=== PATIENT | male | born 1975 | race Caucasian/White ===

== ENCOUNTER 2025-03-04 14:59 | Emergency (ER) | payer MEDICAID, OTHER ==
[~2025-03-04] VITALS: Ht 167.6 cm; Wt 61.0 kg
[~2025-03-04 14:59] MED LIST: NALO4SPR BOTHNSTRLS; OXYC-100 MT; PANT40TA51 PO; SIME80TA16 PO; SUCR1TAB PO; TAMS-54 PO
[2025-03-04 15:04] VITALS: O2SAT 100
[2025-03-04 16:18] LABS: BASOPHILS % 0.9 % (0.0-2.0); EOSINOPHILS % 6.2 % (0.0-5.0); HEMATOCRIT. 31.4 % (42.0-52.0); HEMOGLOBIN. 9.9 g/dL (14.0-18.0); LYMPHOCYTES % 24.5 % (20.0-50.0); MEAN PLATELET VOLUME 7.3 fl (7.4-10.4); MONOCYTES % 6.7 % (2.0-8.0); NEUTROPHILS % 61.7 % (40.0-76.0); PLATELET 498 x1000/uL (130-400); RED BLOOD CELL COUNT 3.53 mill/uL (4.7-6.1); RED CELL DISTRIBUTION WIDTH 15.9 % (11.6-14.6)
[2025-03-04 16:32] LABS: CREATININE 0.8 mg/dL (0.6-1.3); UREA NITROGEN BLOOD 11 mg/dL (9-23)
[2025-03-04 16:33] LABS: PROTEIN TOTAL 7.3 g/dL (6.0-8.3)
[2025-03-04 16:34] LABS: ASPARTATE AMINOTRANSFERASE 17 IU/L (<34); TROPONIN I HIGH SENSITIVITY 5 ng/L (3.0-53)
[2025-03-04 16:35] LABS: BILIRUBIN DIRECT 0.1 mg/dL (<=3.0); BILIRUBIN TOTAL 0.6 mg/dL (0.1-1.0)
[2025-03-04 17:25] LABS: CLARITY URINE CLEAR (CLEAR); COLOR URINE YELLOW (YELLOW); GLUCOSE URINE NEGATIVE (NEGATIVE); KETONES URINE NEGATIVE (NEGATIVE); LEUKOCYTE ESTERASE URINE NEGATIVE (NEGATIVE); NITRITE URINE NEGATIVE (NEGATIVE); OCCULT BLOOD URINE NEGATIVE (NEGATIVE); PH URINE 7.0 (4.5-8.0); PROTEIN URINE NEGATIVE (NEGATIVE); SPECIFIC GRAVITY URINE 1.007 (1.005-1.030); UROBILINOGEN URINE 0.2 E.U./dL (0.2-1.0)
[2025-03-04] MEDS: OXYCODONE HCL/ACETAMINOPHEN 5/325MG TABLET PO ONE (18:02)
[2025-03-04 19:12] VITALS: TEMP 36.8
[2025-03-04 20:20] VITALS: BP 134/82; PULSE 84; RESP 13; O2SAT 100
[2025-03-04] MEDS ORDERED: OXYC-100 MT (21:27)
== END 2025-03-04 20:21 | disposition home or self-care (01) ==
LOC: ER 14:59 → EDBEDREQ 15:34 → CANBEDREQ 19:36 → ER 20:21
DX: K57.30 Diverticulosis of large intestine without perforation or abscess without bleeding (principal); Z93.3 Colostomy status; Z79.899 Other long term (current) drug therapy; Z88.5 Allergy status to narcotic agent; Z88.6 Allergy status to analgesic agent
CPT/HCPCS: 36415; 74176; 80048; 80076; 81003; 84484; 85025; 99285

== ENCOUNTER 2025-03-04 20:38 | Emergency (ER) | payer OTHER ==
[~2025-03-04] VITALS: Ht 167.6 cm; Wt 63.8 kg
[2025-03-04 20:48] VITALS: BP 137/76; TEMP 36.4; O2SAT 100
[2025-03-04 20:49] VITALS: PULSE 86; RESP 16; O2SAT 98
[2025-03-04] MEDS ORDERED: OXYC-100 MT (21:27)
== END 2025-03-04 21:52 | disposition home or self-care (01) ==
LOC: ER 20:38
DX: R10.84 Generalized abdominal pain (principal); R50.9 Fever, unspecified; Z79.899 Other long term (current) drug therapy; Z93.3 Colostomy status; Z88.6 Allergy status to analgesic agent; Z88.5 Allergy status to narcotic agent
CPT/HCPCS: 99283

== ENCOUNTER 2025-03-13 12:59 | Emergency (ER) | payer OTHER ==
[~2025-03-13] VITALS: Ht 172.7 cm; Wt 61.0 kg
[2025-03-13 13:04] VITALS: O2SAT 99
[2025-03-13 13:50] LABS: BASOPHILS % 0.8 % (0.0-2.0); EOSINOPHILS % 7.9 % (0.0-5.0); HEMATOCRIT. 32.0 % (42.0-52.0); HEMOGLOBIN. 10.0 g/dL (14.0-18.0); LYMPHOCYTES % 29.0 % (20.0-50.0); MEAN PLATELET VOLUME 7.2 fl (7.4-10.4); MONOCYTES % 7.0 % (2.0-8.0); NEUTROPHILS % 55.3 % (40.0-76.0); PLATELET 402 x1000/uL (130-400); RED BLOOD CELL COUNT 3.77 mill/uL (4.7-6.1); RED CELL DISTRIBUTION WIDTH 16.8 % (11.6-14.6)
[2025-03-13] MEDS: METOCLOPRAMIDE HCL 10MG/2ML VIAL IV ONE (13:58)
[2025-03-13] MEDS: MORPHINE SULFATE 4 MG/ML INJ (FOR IV/IM USE) IV ONE (13:58)
[2025-03-13] MEDS: SODIUM CHLORIDE 0.9% 1,000 ML IV ONE (13:58)
[2025-03-13 14:09] LABS: CREATININE 0.8 mg/dL (0.6-1.3)
[2025-03-13 14:10] LABS: PROTEIN TOTAL 6.7 g/dL (6.0-8.3); UREA NITROGEN BLOOD 10 mg/dL (9-23)
[2025-03-13 14:11] LABS: ASPARTATE AMINOTRANSFERASE 14 IU/L (<34)
[2025-03-13 14:12] LABS: BILIRUBIN DIRECT 0.2 mg/dL (<=3.0); BILIRUBIN TOTAL 0.7 mg/dL (0.1-1.0)
[2025-03-13 14:47] LABS: CLARITY URINE CLEAR (CLEAR); COLOR URINE YELLOW (YELLOW); GLUCOSE URINE NEGATIVE (NEGATIVE); KETONES URINE NEGATIVE (NEGATIVE); LEUKOCYTE ESTERASE URINE NEGATIVE (NEGATIVE); NITRITE URINE NEGATIVE (NEGATIVE); OCCULT BLOOD URINE NEGATIVE (NEGATIVE); PH URINE 5.5 (4.5-8.0); PROTEIN URINE NEGATIVE (NEGATIVE); SPECIFIC GRAVITY URINE 1.012 (1.005-1.030); UROBILINOGEN URINE 0.2 E.U./dL (0.2-1.0)
[2025-03-13] MEDS ORDERED: MORPHINE SULFATE 4 MG/ML INJ (FOR IV/IM USE) IV ONE (16:15)
[2025-03-13 16:47] LABS: INFLUENZA TYPE A Presumptive Negative (Pres. Neg.)
[2025-03-13 16:48] LABS: INFLUENZA TYPE B Presumptive Negative (Pres. Neg.); RESPIRATORY SYNCYTIAL VIRUS Not Detected (Not Detectd)
[2025-03-13] MEDS: IOHEXOL-300 100 ML BOTTLE ONE (17:57)
[2025-03-13] MEDS: MORPHINE SULFATE 4 MG/ML INJ (FOR IV/IM USE) IV SCH (18:31)
[2025-03-13 19:36] VITALS: BP 136/76; PULSE 74; RESP 16; TEMP 36.9; O2SAT 100
== END 2025-03-13 20:04 | disposition short-term general hospital (02) ==
LOC: ER 12:59 → CANBEDREQ 16:18 → ER 20:04
DX: G89.29 Other chronic pain (principal); R10.9 Unspecified abdominal pain; F84.0 Autistic disorder; Z88.5 Allergy status to narcotic agent; Z88.6 Allergy status to analgesic agent; Z79.899 Other long term (current) drug therapy; Z20.822 Contact with and (suspected) exposure to COVID-19
CPT/HCPCS: 99291; 74177; 96374; 96361; 96375; 87426; 80076; 80048; 81003; 83690; 83735; 85025; 87420; 87804 ×2; 36415; 93005; 96376; Q9967; J2765; J2270; J7030